=== PATIENT | female | born 1950 | race African-American/Black ===

== ENCOUNTER 2016-07-07 15:46 | Emergency (ER) | payer BC, OTHER ==
[~2016-07-07] VITALS: Ht 167.6 cm; Wt 66.2 kg
[2016-07-07 16:19] VITALS: BP 169/107
== END 2016-07-07 20:56 | disposition left against medical advice (07) ==
LOC: ER 16:12
DX: R20.0 Anesthesia of skin (principal); Z53.21 Procedure and treatment not carried out due to patient leaving prior to being seen by health care provider; R51 Headache
CPT/HCPCS: 70450; 93005

== ENCOUNTER 2020-11-17 10:52 | Emergency (ER) | payer OTHER, MEDICAID ==
[~2020-11-17] VITALS: Ht 167.6 cm; Wt 55.3 kg
[2020-11-17] MEDS ORDERED: LIDOCAINE W/ EPINEPHRINE 1% 20ML VIAL ONE (12:01)
[2020-11-17] MEDS ORDERED: LIDOCAINE 1% HCL (LOCAL ANESTH.) INJ 20ML MDV ID ONE (12:15)
[2020-11-17] MEDS ORDERED: LIDOCAINE 2%HCL (LOCAL ANESTH.) INJ 10ml MDV IJ ONE (12:15)
[2020-11-17 13:14] LABS: BUN/Creatinine Ratio 11.8; Calcium 8.4 mg/dL (8.5-10.1); Potassium 3.8 mmol/L (3.5-5.1)
[2020-11-17 13:16] LABS: Basophils # (auto) 0.1 10 ^3/uL (0-0.2); Basophils % (auto) 1.4 % (0.0-2.0); Eosinophils # (auto) 0.2 10 ^3/uL (0-0.8); Eosinophils % (auto) 2.3 % (0.0-7.0); Hematocrit 29.6 % (36.0-46.0); Hemoglobin 9.2 g/dL (12.2-16.2); Lymphocytes # (auto) 2.1 10 ^3/uL (0.4-5.4); Lymphocytes % (auto) 29.7 % (10.0-50.0); Mean Corpuscular Hemoglobin 27.3 pg (28.0-32.0); Monocytes # (auto) 0.6 10 ^3/uL (0-1.3); Neutrophils % (auto) 57.6 % (37.0-80.0); Red Blood Cells 3.37 10^6/uL (4.0-5.20); Red Cell Distribution Width 16.7 % (11.8-14.3); White Blood Cell 6.9 10^3/uL (4.4-10.8)
[2020-11-17] MEDS ORDERED: ACETAMINOPHEN 325 MG TAB PO ONE (15:30)
[2020-11-17] MEDS ORDERED: ONDANSETRON HCL 4 MG/2 ML VIAL IV ONE (16:00)
[2020-11-17] MEDS ORDERED: SODIUM CHLORIDE 0.9% 1,000 ML IV ONE (16:00)
[2020-11-17 19:21] VITALS: BP 128/99
== END 2020-11-17 19:42 | disposition home or self-care (01) ==
LOC: EDUNIT# 10:52 → EDBD 10:52 → ER 10:52
DX: S31.821A Laceration without foreign body of left buttock, initial encounter (principal); I10 Essential (primary) hypertension; F17.210 Nicotine dependence, cigarettes, uncomplicated; Z86.73 Personal history of transient ischemic attack (TIA), and cerebral infarction without residual deficits; W18.39XA Other fall on same level, initial encounter; Y93.89 Activity, other specified; Y92.89 Other specified places as the place of occurrence of the external cause; Y99.8 Other external cause status
CPT/HCPCS: 12005; 36415; 73502; 80048; 85025; 86850; 86900; 86901; 96360; 96361; 99285; J7030; J2001

== ENCOUNTER 2020-11-18 16:03 | Emergency (ER) | payer OTHER, MEDICAID ==
[~2020-11-18] VITALS: Ht 152.4 cm; Wt 55.3 kg
[2020-11-18] MEDS ORDERED: TETANUS-DIPTH-ACEL PERTUSSIS 0.5ML SYR Tdap IM ONE (20:30)
[2020-11-18] MEDS ORDERED: cefTRIAXone SOD 1,000 MG VL IM ONE (20:30)
[2020-11-18] MEDS ORDERED: LIDOCAINE 1% HCL (LOCAL ANESTH.) INJ 20ML MDV IJ ONE (20:45)
[2020-11-18] MEDS ORDERED: SODIUM CHLORIDE 0.9% 1,000 ML IV ONE (21:45)
[2020-11-18] MEDS ORDERED: cefTRIAXone 1GM/50ML D5W 50 ML IV ONE (21:45)
[2020-11-18 22:16] LABS: Basophils # (auto) 0.1 10 ^3/uL (0-0.2); Basophils % (auto) 0.5 % (0.0-2.0); Eosinophils # (auto) 0.1 10 ^3/uL (0-0.8); Eosinophils % (auto) 0.6 % (0.0-7.0); Hematocrit 24.2 % (36.0-46.0); Hemoglobin 7.6 g/dL (12.2-16.2); Lymphocytes # (auto) 3.3 10 ^3/uL (0.4-5.4); Lymphocytes % (auto) 29.7 % (10.0-50.0); Mean Corpuscular Hemoglobin 27.2 pg (28.0-32.0); Mean Corpuscular Hgb Conc. 31.6 g/dL (32.0-36.0); Mean Corpuscular Volume 86.1 fL (80.0-100.0); Monocytes # (auto) 1.5 10 ^3/uL (0-1.3); Monocytes % (auto) 13.5 % (0.0-12.0); Neutrophils # (auto) 6.3 10 ^3/uL (1.6-8.6); Neutrophils % (auto) 55.7 % (37.0-80.0); Red Blood Cells 2.81 10^6/uL (4.0-5.20); Red Cell Distribution Width 16.6 % (11.8-14.3); White Blood Cell 11.2 10^3/uL (4.4-10.8)
[2020-11-18 22:35] LABS: Albumin 2.7 g/dL (3.4-5.0); Calcium 8.4 mg/dL (8.5-10.1); INR 1.1 (0.9-1.15); Potassium 3.3 mmol/L (3.5-5.1)
[2020-11-18 22:38] LABS: BUN/Creatinine Ratio 13.2; Bilirubin, Total 0.5 mg/dL (0.2-1.0); Total Protein 5.5 g/dL (6.4-8.2)
[2020-11-19 01:56] VITALS: BP 126/76
[2020-11-19 02:13] VITALS: BP 101/56
[2020-11-19] MEDS ORDERED: HYDROcodone-ACET 5/325MG TAB PO ONE ×2 (02:15→11:30)
[2020-11-19] MEDS ORDERED: ONDANSETRON HCL 4 MG/2 ML VIAL IV ONE (02:15)
[2020-11-19 02:34] VITALS: BP 111/67
[2020-11-19] MEDS ORDERED: BACITRACIN TOP OINT 1 UD PKG TOP ONE (03:15)
[2020-11-19 03:45] VITALS: BP 106/67
[2020-11-19 05:10] VITALS: BP 118/68
[2020-11-19] MEDS ORDERED: guaiFENesin-DM 100/10mg/5ml SYR PO ONE (13:15)
[2020-11-19] MEDS ORDERED: dilTIAZem 25 MG/5 ML VIAL IV ONE (13:45)
[2020-11-19 15:00] VITALS: BP 123/72
== END 2020-11-19 16:35 | disposition home or self-care (01) ==
LOC: ER 16:03 → EDBD 16:03 → ER 11-19 16:35
DX: S71.112A Laceration without foreign body, left thigh, initial encounter (principal); S31.821A Laceration without foreign body of left buttock, initial encounter; D50.0 Iron deficiency anemia secondary to blood loss (chronic); R53.1 Weakness; F17.210 Nicotine dependence, cigarettes, uncomplicated; I10 Essential (primary) hypertension; Z86.73 Personal history of transient ischemic attack (TIA), and cerebral infarction without residual deficits; W26.8XXA Contact with other sharp object(s), not elsewhere classified, initial encounter; Y93.89 Activity, other specified; Y92.89 Other specified places as the place of occurrence of the external cause; Y99.8 Other external cause status
CPT/HCPCS: 12005; 36415; 80053; 83605; 85025; 85610; 86850; 86900; 86901; 86920; 87040; 90471; 90715; 96365; 96366; 99285; J0696; J2001; J7030; P9016

== ENCOUNTER 2023-08-29 00:19 | Inpatient (IN) | payer OTHER, MEDICAID ==
[~2023-08-29] VITALS: Ht 193 cm; Wt 73.3 kg
[2023-08-29 01:15] VITALS: PULSE 75; RESP 16; O2SAT 97
[2023-08-29 01:38] LABS: Chloride 108 mmol/L (98-107); Potassium 3.5 mmol/L (3.5-5.1); Sodium 139 mmol/L (136-145)
[2023-08-29 01:39] LABS: Anion Gap 9 (5-15); Calcium 9.4 mg/dL (8.7-10.4); Carbon Dioxide 22 mmol/L (20-30)
[2023-08-29 01:44] LABS: BUN/Creatinine Ratio 10.1 (10.0-20.0); Blood Urea Nitrogen 12 mg/dL (9-23); Glucose 88 mg/dL (74-106)
[2023-08-29 02:13] LABS: Basophils # (auto) 0.2 10 ^3/uL (0-0.2); Basophils % (auto) 2.4 % (0.0-2.0); Eosinophils # (auto) 0.2 10 ^3/uL (0-0.8); Eosinophils % (auto) 2.5 % (0.0-7.0); Hematocrit 37.8 % (36.0-46.0); Hemoglobin 12.3 g/dL (12.2-16.2); Lymphocytes # (auto) 2.5 10 ^3/uL (0.4-5.4); Lymphocytes % (auto) 32.4 % (10.0-50.0); Mean Corpuscular Hemoglobin 27.4 pg (28.0-32.0); Mean Corpuscular Hgb Conc. 32.5 g/dL (32.0-36.0); Mean Corpuscular Volume 84.3 fL (80.0-100.0); Monocytes # (auto) 0.9 10 ^3/uL (0-1.3); Monocytes % (auto) 11.7 % (0.0-12.0); Neutrophils # (auto) 3.9 10 ^3/uL (1.6-8.6); Nucleated Red Blood Cells % 0.1 %; Red Blood Cells 4.48 10^6/uL (4.0-5.20); Red Cell Distribution Width 15.4 % (11.8-14.3); White Blood Cell 7.6 10^3/uL (4.4-10.8)
[2023-08-29] MEDS ORDERED: MORPHINE SULFATE INJ 2 MG/ml SYRG IV PRN (03:00)
[2023-08-29] MEDS: SODIUM CHLORIDE 0.9% 1,000 ML IV SCH (03:00)
[2023-08-29] MEDS ORDERED: hydrALAZINE HCL 20 MG/ML VL IV PRN (03:00)
[2023-08-29] MEDS ORDERED: DOCUSATE SOD 100 MG CAP PO PRN (03:00)
[2023-08-29] MEDS ORDERED: NITROGLYCERIN 0.4 MG SL TAB SL PRN (03:00)
[2023-08-29 05:00] VITALS: BP 149/103; PULSE 84; RESP 20; TEMP 97.6; O2SAT 96
[2023-08-29] MEDS ORDERED: PROP60CA34 PO (05:41)
[2023-08-29] MEDS ORDERED: GABA300T4 PO (05:41)
[2023-08-29] MEDS ORDERED: LISI10TA34 PO (05:41)
[2023-08-29] MEDS ORDERED: TRAZ-228 PO (05:41)
[2023-08-29] MEDS ORDERED: BUSP5TAB51 PO (05:41)
[2023-08-29] MEDS ORDERED: AML5T PO (05:41)
[2023-08-29 08:00] VITALS: BP 134/98; PULSE 77; RESP 16; TEMP 98.1; O2SAT 97
[2023-08-29 11:31] LABS: Basophils # (auto) 0.1 10 ^3/uL (0-0.2); Basophils % (auto) 1.1 % (0.0-2.0); Eosinophils # (auto) 0.2 10 ^3/uL (0-0.8); Eosinophils % (auto) 3.7 % (0.0-7.0); Hematocrit 40.7 % (36.0-46.0); Hemoglobin 13.4 g/dL (12.2-16.2); Lymphocytes # (auto) 1.8 10 ^3/uL (0.4-5.4); Lymphocytes % (auto) 28.8 % (10.0-50.0); Mean Corpuscular Hemoglobin 27.6 pg (28.0-32.0); Mean Corpuscular Hgb Conc. 32.9 g/dL (32.0-36.0); Mean Corpuscular Volume 83.9 fL (80.0-100.0); Monocytes # (auto) 0.7 10 ^3/uL (0-1.3); Monocytes % (auto) 11.8 % (0.0-12.0); Neutrophils # (auto) 3.4 10 ^3/uL (1.6-8.6); Neutrophils % (auto) 54.6 % (37.0-80.0); Nucleated Red Blood Cells % 0.1 %; Red Blood Cells 4.85 10^6/uL (4.0-5.20); Red Cell Distribution Width 15.5 % (11.8-14.3); White Blood Cell 6.1 10^3/uL (4.4-10.8)
[2023-08-29 11:48] LABS: Alkaline Phosphatase 89 U/L (46-116); Anion Gap 10 (5-15); Aspartate Aminotransferase < 8 U/L (13-40); BUN/Creatinine Ratio 14.3 (10.0-20.0); Bilirubin, Total 0.8 mg/dL (0.2-1.0); Blood Urea Nitrogen 13 mg/dL (9-23); Calcium 9.6 mg/dL (8.7-10.4); Carbon Dioxide 23 mmol/L (20-30); Chloride 109 mmol/L (98-107); Glucose 86 mg/dL (74-106); Potassium 3.2 mmol/L (3.5-5.1); Sodium 142 mmol/L (136-145); Total Protein 6.4 g/dL (5.7-8.2)
[2023-08-29 11:49] LABS: Alanine Aminotransferase < 9 U/L (7-40)
[2023-08-29] MEDS: FAMOTIDINE (10MG/ML) 2ML VL IV SCH (12:12)
[2023-08-29] MEDS: ASPirin 81 mg TAB PO SCH (12:13)
[2023-08-29 12:30] VITALS: BP 140/97; PULSE 79; RESP 18; TEMP 97.9; O2SAT 96
[2023-08-29] MEDS: LISINOPRIL 5 MG TAB PO ONE (13:02)
[2023-08-29] MEDS: GABAPENTIN 300 MG CAP PO ONE (13:02)
[2023-08-29] MEDS: amLODIPine BESYLATE 5 MG TAB PO ONE (13:03)
[2023-08-29] MEDS: ACETAMINOPHEN 325 MG TAB PO PRN (13:04)
[2023-08-29] MEDS: HYDROcodone-ACET 5/325MG TAB PO PRN (15:37)
[2023-08-29 17:12] VITALS: BP 123/80; PULSE 72; RESP 18; TEMP 98.1; O2SAT 97
[2023-08-29 21:00] VITALS: BP 134/90; PULSE 79; RESP 18; TEMP 98.3; O2SAT 98
[2023-08-29] MEDS: traZODone HCL 50 MG TAB PO SCH (22:28)
[2023-08-29] MEDS: CYCLOBENZAPRINE HCL 10 MG TAB PO SCH (22:29)
[2023-08-29] MEDS: ATORVASTATIN 20 MG TAB PO SCH (22:29)
[2023-08-29] MEDS: busPIRone HCL 10 MG TAB PO SCH (22:33)
[2023-08-30 06:48] LABS: Basophils # (auto) 0 10 ^3/uL (0-0.2); Basophils % (auto) 0.8 % (0.0-2.0); Eosinophils # (auto) 0.2 10 ^3/uL (0-0.8); Eosinophils % (auto) 3.8 % (0.0-7.0); Hematocrit 37.6 % (36.0-46.0); Hemoglobin 12.5 g/dL (12.2-16.2); Lymphocytes # (auto) 2.1 10 ^3/uL (0.4-5.4); Lymphocytes % (auto) 36.5 % (10.0-50.0); Mean Corpuscular Hgb Conc. 33.4 g/dL (32.0-36.0); Mean Corpuscular Volume 83.9 fL (80.0-100.0); Monocytes # (auto) 0.7 10 ^3/uL (0-1.3); Monocytes % (auto) 12.8 % (0.0-12.0); Neutrophils # (auto) 2.7 10 ^3/uL (1.6-8.6); Neutrophils % (auto) 46.1 % (37.0-80.0); Red Blood Cells 4.48 10^6/uL (4.0-5.20); White Blood Cell 5.8 10^3/uL (4.4-10.8)
[2023-08-30 07:05] LABS: Alkaline Phosphatase 81 U/L (46-116); Anion Gap 6 (5-15); BUN/Creatinine Ratio 12.5 (10.0-20.0); Blood Urea Nitrogen 11 mg/dL (9-23); Calcium 9.3 mg/dL (8.7-10.4); Carbon Dioxide 25 mmol/L (20-30); Chloride 110 mmol/L (98-107); Glucose 78 mg/dL (74-106); Potassium 3.2 mmol/L (3.5-5.1); Sodium 141 mmol/L (136-145)
[2023-08-30 07:06] LABS: Albumin 3.6 g/dL (3.2-4.8); Aspartate Aminotransferase 8 U/L (13-40); Bilirubin, Total 0.8 mg/dL (0.2-1.0); Total Protein 5.8 g/dL (5.7-8.2)
[2023-08-30 07:15] LABS: Alanine Aminotransferase < 9 U/L (7-40)
[2023-08-30] MEDS ORDERED: ASPI-325 PO (08:24)
[2023-08-30] MEDS ORDERED: LISI-275 PO (08:24)
[2023-08-30] MEDS ORDERED: ACET-1882 PO (08:24)
[2023-08-30] MEDS ORDERED: CYCL-611 PO (08:24)
[2023-08-30] MEDS ORDERED: ATOR20TA50 PO (08:24)
[2023-08-30] MEDS ORDERED: POTA-36 PO (08:24)
[2023-08-30 08:30] VITALS: BP 140/90; PULSE 77; RESP 17; TEMP 98.4; O2SAT 98
[2023-08-30] MEDS ORDERED: POTASSIUM CHL 20MEQ/100ML 100 ML IV SCH (08:30)
[2023-08-30] MEDS ORDERED: POTASSIUM CHL 20MEQ/100ML 100 ML IV ONE (08:30)
[2023-08-30] MEDS: POTASSIUM CHL 20 Meq TABLET PO ONE (09:42)
[2023-08-30] MEDS: amLODIPine BESYLATE 5 MG TAB PO SCH (09:44)
[2023-08-30] MEDS: LISINOPRIL 5 MG TAB PO SCH (09:45)
[2023-08-30] MEDS: GABAPENTIN 300 MG CAP PO SCH (09:46)
[2023-08-30 12:30] VITALS: BP 112/84; PULSE 92; RESP 18; TEMP 98; O2SAT 94
[2023-08-30 13:55] VITALS: BP 112/84; PULSE 92; RESP 18; TEMP 98; O2SAT 94
[2023-08-30] MEDS: CYANOCOBALAMIN (B-12) 1000 MCG/1 ML VIAL IM ONE (15:52)
[2023-08-30 16:47] VITALS: BP 122/78; PULSE 56; RESP 20; TEMP 98.1; O2SAT 100
[2023-08-30 21:00] VITALS: BP 123/76; PULSE 85; RESP 19; TEMP 97.9; O2SAT 94
[2023-08-30] MEDS: ATORVASTATIN 20 MG TAB PO SCH (21:31)
[2023-08-31] MEDS: MAGNESIUM SULFATE 1GM/100ML 100 ML IV ONE ×2 (02:10→14:54)
[2023-08-31 05:00] VITALS: BP 116/74; PULSE 84; RESP 18; TEMP 98.4; O2SAT 93
[2023-08-31] MEDS: ONDANSETRON HCL 4 MG/2 ML VIAL IV PRN (05:27)
[2023-08-31 06:54] LABS: Basophils # (auto) 0.1 10 ^3/uL (0-0.2); Basophils % (auto) 0.8 % (0.0-2.0); Eosinophils # (auto) 0.2 10 ^3/uL (0-0.8); Eosinophils % (auto) 2.7 % (0.0-7.0); Hematocrit 39.3 % (36.0-46.0); Lymphocytes # (auto) 2.1 10 ^3/uL (0.4-5.4); Lymphocytes % (auto) 27.2 % (10.0-50.0); Mean Corpuscular Hgb Conc. 33.2 g/dL (32.0-36.0); Mean Corpuscular Volume 84.5 fL (80.0-100.0); Monocytes # (auto) 0.9 10 ^3/uL (0-1.3); Monocytes % (auto) 11.8 % (0.0-12.0); Neutrophils # (auto) 4.4 10 ^3/uL (1.6-8.6); Neutrophils % (auto) 57.5 % (37.0-80.0); Nucleated Red Blood Cells % 0.2 %; Red Blood Cells 4.65 10^6/uL (4.0-5.20); Red Cell Distribution Width 15.4 % (11.8-14.3); White Blood Cell 7.7 10^3/uL (4.4-10.8)
[2023-08-31 06:57] LABS: Anion Gap 8 (5-15); Carbon Dioxide 24 mmol/L (20-30); Chloride 108 mmol/L (98-107); Potassium 3.4 mmol/L (3.5-5.1); Sodium 140 mmol/L (136-145)
[2023-08-31 06:59] LABS: Calcium 9.6 mg/dL (8.7-10.4)
[2023-08-31 07:03] LABS: BUN/Creatinine Ratio 11.8 (10.0-20.0); Blood Urea Nitrogen 11 mg/dL (9-23); Glucose 98 mg/dL (74-106)
[2023-08-31 08:00] VITALS: BP 123/92; PULSE 92; RESP 16; TEMP 98.8; O2SAT 97; O2SAT 98
[2023-08-31] MEDS: CYANOCOBALAMIN (B-12) 1000 MCG/1 ML VIAL SUBCUT SCH (09:36)
[2023-08-31] MEDS ORDERED: CYANOCOBALAMIN (B-12) 1000 MCG/1 ML VIAL SUBCUT SCH (10:00)
[2023-08-31 12:00] VITALS: BP 146/103; PULSE 92; RESP 16; TEMP 98.6; O2SAT 94
[2023-08-31] MEDS: POTASSIUM EFFERVESENT TAB 25 MEQ PO SCH (15:23)
[2023-08-31 16:00] VITALS: BP 112/91; PULSE 91; RESP 15; TEMP 98.4; O2SAT 96
[2023-08-31 21:00] VITALS: BP 120/79; PULSE 92; RESP 21; TEMP 98.2; O2SAT 93
[2023-09-01 01:00] VITALS: BP 132/91; PULSE 86; RESP 18; TEMP 98.3; O2SAT 92
[2023-09-01 04:36] LABS: Chloride 108 mmol/L (98-107); Potassium 3.4 mmol/L (3.5-5.1); Sodium 139 mmol/L (136-145)
[2023-09-01 04:37] LABS: Anion Gap 7 (5-15); Carbon Dioxide 24 mmol/L (20-30)
[2023-09-01 04:42] LABS: BUN/Creatinine Ratio 10.8 (10.0-20.0); Blood Urea Nitrogen 10 mg/dL (9-23); Glucose 90 mg/dL (74-106)
[2023-09-01 05:00] VITALS: BP 125/80; PULSE 87; RESP 21; TEMP 98.8; O2SAT 93
[2023-09-01 07:40] VITALS: BP 125/80; PULSE 87; RESP 21; TEMP 98.8; O2SAT 93
[2023-09-01 08:00] VITALS: PULSE 87; RESP 21; O2SAT 93
[2023-09-01 09:00] VITALS: BP 108/82; PULSE 79; RESP 20; TEMP 97.6; O2SAT 96
== END 2023-09-01 09:36 | disposition home health service (06) | DRG 562 ==
LOC: EDBD 00:19 → ER 00:19 → OVERFLOW 02:54 → WEST WING 05:22
PROVIDERS: ADMIT Internal Medicine; ATTEND Internal Medicine
DX: S96.912A Strain of unspecified muscle and tendon at ankle and foot level, left foot, initial encounter (principal); N17.0 Acute kidney failure with tubular necrosis; I69.354 Hemiplegia and hemiparesis following cerebral infarction affecting left non-dominant side; F17.210 Nicotine dependence, cigarettes, uncomplicated; I10 Essential (primary) hypertension; F41.9 Anxiety disorder, unspecified; E87.6 Hypokalemia; E53.8 Deficiency of other specified B group vitamins; X58.XXXA Exposure to other specified factors, initial encounter; Z79.82 Long term (current) use of aspirin; Z99.3 Dependence on wheelchair; Y93.89 Activity, other specified; Y99.8 Other external cause status; Y92.89 Other specified places as the place of occurrence of the external cause
CPT/HCPCS: 36415; 73610; 80048; 80053; 82306; 82607; 83036; 83735; 84132; 84443; 84484; 85025; 93971; 97163; G0378; J2405; J3490

== ENCOUNTER 2024-07-25 20:02 | Emergency (ER) | payer OTHER, MEDICAID ==
[~2024-07-25] VITALS: Ht 170.2 cm; Wt 75.0 kg
[~2024-07-25 20:02] MED LIST: ACET-1882 PO; AML5T PO; ASPI-325 PO; ATOR20TA50 PO; BUSP5TAB51 PO; CYCL-611 PO; GABA300T4 PO; LISI-275 PO; LISI10TA34 PO; POTA-36 PO; PROP60CA34 PO; TRAZ-228 PO
--- NOTE | 2024-07-25 21:01 | ED.PDOC ---
Musculoskeletal HPI Comments 74y F who presents to the ED via EMS for chief complaint of fall injury. Per EMS, pt daughter called after pt had slipped out of her wheelchair onto the floor. Pt states she did not hit her head or any associated loss of consciousness. Pt had no associated headache or any associated injuries or deformities. Pt daughter called EMS for pt to be evaluated by provider in the ED. Pt in the ED, denies any associated injuries or complaints. Pt states she wants to go home. 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 Pt is ax0x4 and denies any other symptoms at this time. Chief Complaint: Fall Injury Time Seen by MD: 20:45 Primary Care Provider: DENIES Reviewed Notes: [place] [place] Tender Notes, Medications, Allergies Allergies: Coded Allergies: NO KNOWN ALLERGIES (Unverified , 11/17/20) Home Meds Active Scripts Potassium Chloride (POTASSIUM CHLORIDE CR) 10 Meq Tb, 1 TAB PO DAILY for 5 Days, #5 TAB 5 Refills Prov:RAM[facility]O [facility] 08/30/23 Lisinopril (Lisinopril) 5 Mg Tab, 10 MG PO DAILY for 30 Days, #60 TAB Prov:RAMIRO [facility] 08/30/23 Cyclobenzaprine HCl (Cyclobenzaprine Hydrochlo) 10 Mg Tab, 5 MG PO BID for 10 Days, #10 TAB Prov:RAMIRO [facility] 08/30/23 Atorvastatin Calcium (ATORVASTATIN CALCIUM) 20 Mg Tab, 10 MG PO HS for 30 Days, #15 TAB Prov:RAMIRO [facility] 08/30/23 Aspirin (Aspirin Low Dose) 81 Mg Tab, 81 MG PO DAILY for 30 Days, #30 TAB Prov:RAMIRO [facility] 08/30/23 Acetaminophen (Acetaminophen) 325 Mg Tab, 650 MG PO Q6HP PRN for 10 Days, #80 TAB Prov:RAMIRO [facility] 08/30/23 Reported Medications Propranolol Hcl (Inderal La) 60 Mg Cap, 1 CAP PO DAILY, #90 CAP 1 Refill 08/29/23 Buspirone Hcl (Buspirone Hcl) 5 Mg Tab, 1 TAB PO BID, #60 TAB 1 Refill 08/29/23 Lisinopril (Lisinopril) 10 Mg Tab, 10 MG PO, TAB 08/29/23 Trazodone Hcl (Trazodone Hcl) 100 Mg Tab, 1 TAB PO QPM, #30 TAB 1 Refill 08/29/23 Gabapentin (Once-Daily) (Gabapentin) 300 Mg Tab, 300 MG PO, TAB 08/29/23 Amlodipine Besylate (NORVASC TABLET) 5 Mg Tb, 1 TAB PO DAILY, #30 TAB 5 Refills 08/29/23 Information Source: Patient, Emergency Med Personnel Mode of Arrival: EMS Past Medical History PAST MEDICAL HISTORY: CVA, HTN Surgical History: Denies all surgeries [employer] SAL[employer] History: Denies all [employer] SAL[employer]ANT Hx Family History Family History: Reviewed,noncontributory to illness Social History Smoker: Cigarettes Alcohol: Occasionally Drugs: Denies Drug Use Lives In: Home Constitutional: denies: chills, diaphoresis, fatigue, fever, malaise, sweats, weakness, others EENTM: denies: blurred vision, double vision, ear bleeding, ear discharge, ear drainage, ear pain, ear ringing, eye pain, eye redness, hearing loss, mouth pain, mouth swelling, nasal discharge, nose bleeding, nose congestion, nose pain, photophobia, tearing, throat pain, throat swelling, voice changes, others Respiratory: denies: cough, hemoptysis, orthopnea, SOB at rest, shortness of breath, SOB with excertion, stridor, wheezing, others Cardiovascular: denies: chest pain, dizzy spells, diaphoresis, Dyspnea on exertion, edema, irregular heart beat, left arm pain, lightheadedness, palpitations, PND, syncope, others Gastrointestinal: denies: abdomen distended, abdominal pain, blood streaked bowels, constipated, diarrhea, dysphagia, difficulty swallowing, hematemesis, me lu, nausea, poor appetite, poor fluid intake, rectal bleeding, rectal pain, vomiting, others Genitourinary: denies: abnormal vagina bleeding, burning, dyspareunia, dysuria, flank pain, frequency, hematuria, incontinence, pain, , vagina discharge, urgency, others Neurological: denies: dizziness, fainting, headache, left sided numbness, left sided weakness, numbness, paresthesia, pre-existing deficit, right sided numbness, right sided weakness, seizure, speech problems, tingling, tremors, weakness, others Musculoskeletal: denies: back pain, gout, joint pain, joint swelling, muscle pain, muscle stiffness, neck pain, others Integumetry: denies: bruises, change in color, change in hair/nails, dryness, laceration, lesions, lumps, rash, wounds, others Allergic/Immunocompromised: denies: Difficulty Healing, Frequent Infections, Hives, Itching, others Hematologic/Lymphatic: denies: anemia, blood clots, easy bleeding, easy bruising, swollen glands, others Endocrine: denies: excessive hunger, excessive sweating, excessive thirst, excessive urination, flushing, intolerance to cold, intolerance to heat, unexplained weight gain, unexplained weight loss, others Psychiatric: denies: anxiety, bipolar disorder, depression, hopeless, panic disorder, schizophrenia, sleepless, suicidal, others All Other Systems: Reviewed and Negative Physical Exam General Appearance: No Apparent Distress, Normal HEENT: Normal ENT Inspection, Pharynx Normal, TMs Normal Neck: Full Range of Motion, Non-Tender, Normal, Normal Inspection Respiratory: Chest Non-Tender, Lungs Clear, No Accessory Muscle Use, No Respiratory Distress, Normal Breath Sounds Cardiovascular: No Edema, No JVD, No Murmur, No Gallop, Normal Peripheral Pulses, Regular Rate/Rhythm Breast Exam: Deferred Gastrointestinal: No Organomegaly, Non Tender, No Pulsatile Mass, Normal Bowel Sounds, Soft Genitalia: Deferred Pelvic: Deferred Rectal: Deferred Extremities: No calf tenderness, Normal capillary refill, Normal inspection, Normal range of motion, Non-tender, No pedal edema Musculoskeletal : Apperance: Normal Neurologic: Motor Weakness (L upper extremity deficits) Cerebellar Function: Normal Reflexes: Normal Skin: Dry, Normal Color, Warm Lymphatic: No Adenopathy Was a procedure done? Was a procedure done?: No Differential Diagnosis EXT Differential Diagnosis: Fracture, Sprain, Dislocation, Neurovascular injury, Arthritis Other Differential Diagnosis fall injury X-Ray, Labs, Meds, VS Vital Signs Date Time Temp Pulse Resp B/P (MAP) Pulse Ox O2 Delivery O2 Flow Rate FiO2 07/25/24 20:14 98.0 84 16 119/80 (93) 96 98.0 X-Ray, Labs, Meds, VS Comment Patient states she is asymptomatic. She did not want to come, states her daughter called 911 and forced her to come. Patient states she has not no complaints so she has not no need for imaging. Time of 1ST Reevaluation: 21:51 Reevaluation 1ST: Unchanged Patient Education/Counseling: Diagnosis, Treatment, Need For Follow Up (Follow up as needed) Family Education/Counseling: No Family Present Departure 1 Departure Time of Disposition: 21:51 Impression: Primary Impression: Weakness of left side of body Disposition: 01 HOME / SELF CARE / HOMELESS Condition: Fair Discharged With: Self Critical Care Note Critical Care Time?: No Stability Stability form required: No Heart Score Heart Score: Heart Score Response (Comments) Value History N/A 0 EKG N/A 0 Age N/A 0 Risk Factors N/A 0 Troponin N/A 0 Total 0 I personally scribed for FRANCISCO BEST ([email or web address]) on 07/25/24 at 21:01. Electronically submitted by Valdo NICKERSON). FRANCISCO BEST Jul 25, 2024 21:01
[2024-07-25 23:01] VITALS: BP 130/94; PULSE 92; RESP 16; TEMP 97.4; O2SAT 97
== END 2024-07-26 00:12 | disposition home or self-care (01) ==
LOC: ER 20:02 → EDBD 20:02 → ER 07-26 00:12
DX: R53.1 Weakness (principal); I10 Essential (primary) hypertension; F17.210 Nicotine dependence, cigarettes, uncomplicated; Z79.82 Long term (current) use of aspirin; Z79.899 Other long term (current) drug therapy; Z86.73 Personal history of transient ischemic attack (TIA), and cerebral infarction without residual deficits